=== PATIENT | female | born 1985 | race Caucasian/White ===

== ENCOUNTER 2017-03-12 18:39 | Emergency (ER) | payer BC ==
[~2017-03-12] VITALS: Ht 157.5 cm; Wt 116.0 kg
[2017-03-12 18:41] VITALS: TEMP 36.8; Ht 157.5 cm; Wt 116.0 kg
--- NOTE | 2017-03-12 19:28 | DIAGNOSTIC IMAGING REPORT ---
RIGHT TIBIA/FIBULA 2 VIEWS ROUTINE CLINICAL HISTORY: Right lower leg pain COMPARISON: None. DISCUSSION: No fractures or dislocations are visualized. There are no erosive or destructive changes. IMPRESSION: No bony abnormalities identified. Electronically signed by: Hugh Denney M.D. 03/12/2017 7:26 PM Dictated Date/Time: 03/12/2017 7:26 PM
--- NOTE | 2017-03-12 20:58 | DIAGNOSTIC IMAGING REPORT ---
ULTRASOUND RIGHT VENOUS DOPP LOWER EXT UNILAT CLINICAL HISTORY: Right leg pain COMPARISON STUDY: No previous studies for comparison. FINDINGS: Real-time and color flow Doppler imaging were performed. Flow was seen within the femoral, popliteal and calf veins with no intraluminal thrombus demonstrated. The saphenous vein is patent. IMPRESSION: No evidence of right lower extremity DVT. Electronically signed by: Hugh Denney M.D. 03/12/2017 8:57 PM Dictated Date/Time: 03/12/2017 8:57 PM
[2017-03-12] MEDS ORDERED: CEPH500C2 PO (21:57)
[2017-03-12] MEDS ORDERED: CEPHALEXIN 500MG HOME PACK 1 EA BTL PO ONE (22:00)
[2017-03-12 22:02] VITALS: BP 118/77; PULSE 79; O2SAT 97
--- NOTE | 2017-03-12 23:49 | EMERGENCY ROOM VISIT NOTE ---
ED Visit Note First contact with patient: 18:46 Chief Complaint: Right lower leg pain. History of Present Illness: Ms. San is a 31-year-old white female who ambulates into the ED complaining of right anterior mid lower leg pain. Patient reports she has been having ongoing pain in this area for the last 5 months. For 5 months her pain has been constant and in the last 2 weeks has increased in intensity. She contacted her PCP and she is not being able to be seen at the office for approximately 2 additional weeks. Currently she describes a throbbing and deep achy sensation over the anterior aspect of the mid right lower leg just lateral to the tibia. She rates her discomfort 9/10. Her pain is nonradiating. Her pain worsens minimally with ambulation and significantly with palpation. She reports she has not identified any alleviating factors related to the pain. She reports approximately 2 hours ago she took 400 mg of ibuprofen for pain without relief of her discomfort. Associated with her pain she has noted some mild swelling in the area of her pain and today the area is slightly red. She denies any associated symptoms including fevers, chills, sweats, recent repetitive or direct trauma, hip pain, thigh pain, knee pain, ankle pain, foot pain, extremity weakness/numbness/tingling, chest pain, shortness of breath, palpation, claudication, cramping, previous clots, recent surgery/inactivity/ extended travel, estrogen and tobacco use. Review of Systems: As noted above in history of present illness. 8 body systems were reviewed and found to be negative as noted above. Past Medical History: Status post cholecystectomy and 2 sections. Current Medications: Patient denies. Allergies to Medications: Patient denies. Social History: Patient is currently employed; she feels safe in her home environment; she denies tobacco and alcohol use. Physical Examination: Vital Signs: Date Time Temp Pulse Resp B/P Pulse Ox O2 Delivery O2 Flow Rate FiO2 03/12/17 22:02 79 20 118/77 97 Room Air 03/12/17 20:10 86 20 98 Room Air 03/12/17 18:41 36.8 86 16 127/87 100 Room Air GENERAL: 31-year-old female in moderate distress due to pain, nontoxic- appearing, afebrile and hemodynamically stable. Patient anxious and tearful. NEUROLOGICAL: Awake, alert and oriented to person, place and time. Answering questions appropriately and following commands. Normal gait. Good hand eye coordination. No focal motor sensory deficits. SKIN: Warm, dry and pink. HEENT: Atraumatic and normocephalic. THORAX: Lungs sounds are clear to auscultation and equal bilaterally with symmetrical chest wall. No crepitus, tenderness, subcutaneous air or deformities noted. HEART: Regular rate and rhythm. No gallops, rubs or murmurs are appreciated. RIGHT LOWER LEG: No gross bony deformity. No shortening or malrotation. No tenderness over the hip, thigh, knee, ankle or foot. Patient does have mild tenderness just lateral to the tibia in the mid lower leg. This area slightly swollen with mild erythema. There is no warmth to this area or lymphangitis. There is no open wounds to the area. Full range of motion of the hip, knee, ankle, foot and toes against resistance. Throughout the leg the skin was warm and pink and capillary refill is brisk. She is able to distinguish light sensations through all dermatomes. ED Course: Patient is assessed as noted above. Patient was offered pain medications and refused. Right Lower Leg X-Rays: Were read by myself and the radiologist showing no acute fractures or dislocations. Right Lower Leg Venous Doppler Ultrasound: Was reviewed by myself and read by the radiologist showing no deep vein venous thrombus. Patient was offered crutches and refused. Patient was educated about tonight's findings and instructed on her treatment plan; she verbalizes understanding and agreement with this plan. Clinical Impression: Right lower leg pain. Decision-Making: Initially my differential diagnosis I considered cellulitis, superficial thrombus, deep vein thrombus, fracture, contusion, muscle strain and other causes. Disposition: Patient discharged home in stable condition; prior to departure she was reassessed and subjectively reported she was pain-free. Plan: Because of the mild area of erythema this could be the start of a cellulitis so patient was prescribed Keflex 500 mg 4 times a day for 10 days. Patient was encouraged to alternate ibuprofen and acetaminophen as needed for pain. The area of erythema was demarcated with a pen and patient was educated on signs of worsening infection. Patient was encouraged to follow-up with her PCP or return to the ED in 36-48 hours for recheck. Patient was encouraged return the ED for any signs of worsening infection, uncontrolled pain or any new/concerning symptoms.
== END 2017-03-12 22:09 | disposition home or self-care (01) ==
LOC: C.EDB 18:41 → C.EDD 22:09
DX: M79.604 Pain in right leg (principal)